=== PATIENT | male | born 1965 | race Caucasian/White ===

== ENCOUNTER → 2024-03-13 16:37 | Outpatient (REF) | payer OTHER, SELFPAY | LOC: PAVMRI 16:37 | PROVIDERS: ATTENDING PHYSICIAN Orthopaedic Surgery; FAMILY PHYSICIAN Nurse Practitioner Family | DX: M25.511 Pain in right shoulder (principal); M54.12 Radiculopathy, cervical region | CPT/HCPCS: 72141; 73221 ==

== ENCOUNTER 2024-04-27 07:57 | Outpatient (RCR) | payer OTHER, SELFPAY | END 2024-04-27 23:59 | disposition home or self-care (01) | LOC: RPT 07:57 | PROVIDERS: ATTENDING PHYSICIAN Physician Assistant Surgical; FAMILY PHYSICIAN Family Medicine | DX: M54.12 Radiculopathy, cervical region (principal); M50.30 Other cervical disc degeneration, unspecified cervical region; M19.011 Primary osteoarthritis, right shoulder; M19.012 Primary osteoarthritis, left shoulder; Z73.6 Limitation of activities due to disability | CPT/HCPCS: 97110; 97112; 97140; 97162 ==

== ENCOUNTER 2024-05-29 13:02 | Outpatient (RCR) | payer OTHER, SELFPAY | END 2024-05-29 23:59 | disposition home or self-care (01) | LOC: RPT 13:02 | PROVIDERS: ATTENDING PHYSICIAN Physician Assistant Surgical; FAMILY PHYSICIAN Family Medicine | DX: M54.12 Radiculopathy, cervical region (principal); M50.30 Other cervical disc degeneration, unspecified cervical region; M19.019 Primary osteoarthritis, unspecified shoulder; M75.50 Bursitis of unspecified shoulder; Z73.6 Limitation of activities due to disability | CPT/HCPCS: 97110; 97112; 97140 ==

== ENCOUNTER 2024-06-06 10:39 | Emergency (ER) | payer OTHER, SELFPAY ==
[2024-06-06 10:50] VITALS: BP 136/78
[2024-06-06 11:22] VITALS: BMI 24.8
--- NOTE | 2024-06-06 11:46 | ED.GENMED ---
History of Present Illness
General
Chief Complaint: Skin Problem
Time Seen by Provider: 06/06/24 11:21
History of Present Illness
History of Present Illness:
58-year-old male presents to the emergency department for evaluation of redness and discomfort associated with an abrasion to the right lower leg. States he injured it last week on the bottom of an extension ladder. Initially cleaned the wound and
stopped bleeding with liquid skin. Over the past 2 days has had increased redness and swelling. No fevers or chills. Concerned that he has a right hip replacement.
Review of Systems
Review of Systems
Allergies reviewed?: Yes
All Other Systems: ROS reviewed and negative except as documented in HPI and ROS
Phy Exam
Physical Exam
Physical Exam:
GEN: Well appearing, NAD, WDWN
HEENT: Oral mucosa moist, no scleral icterus
Cardiac: Regular rate
Lung: No respiratory distress, no tachypnea
MSK: No gross deformity or injuries
Skin: Good color, no pallor or jaundice. 2 cm healing partial-thickness laceration to the right lower leg with approximately 1 to 2 cm circumferential erythema and tenderness, no swelling or purulent discharge
Neuro: AO x3, moves all extremities freely
Psych: Calm, cooperative
Course
Vital Signs
Initial and Last Documented VS:
Initial Vital Signs
Temp Pulse Resp BP Pulse Ox
98.8 F 60 18 136/78 98
06/06/24 10:50 06/06/24 10:50 06/06/24 10:50 06/06/24 10:50 06/06/24 10:50
Last Documented Vital Signs
Temp Pulse Resp BP Pulse Ox
98.8 F 60 18 136/78 98
06/06/24 10:50 06/06/24 10:50 06/06/24 10:50 06/06/24 10:50 06/06/24 10:50
MDM/Problems Addressed
MDM/Problems Addressed:
Mild cellulitis developing as a result of the wound. No palpable evidence for abscess, no lymphangitis. Patient is clinically well, no clinical signs of sepsis. Will treat with high-dose cephalexin due to indwelling orthopedic hardware
*Critical Care Note
Total Time (30-74mins, 75-104mins- exclusive of procedures): Not Applicable
ED Attending Note
-
Portions of this chart may have been created with voice recognition software.� Occasional wrong word or��sound alike� substitutions may have occurred due to the inherent limitations of voice recognition software.
Discharge Plan
Departure
Patient Disposition: Home (Routine Discharge)
Date of Disposition: 06/06/24
Time of Disposition: 11:48
Patient with high blood pressure during this ER visit?: No
Discharge Problem:
Cellulitis of right lower extremity
Instructions: Cellulitis (Skin Infection), Adult (DC)
Prescriptions:
New
cephalexin 500 mg capsule
500 mg PO QID 7 Days Qty: 28 0RF
No Action
metoprolol tartrate 25 MG tablet
25 mg PO Daily
multivitamin Tablet
1 tab PO DAILY
hawthorn 500 mg Capsule
500 mg PO DAILY
oregano oil 1,500 mg Capsule
500 mg PO DAILY
cholecalciferol (vitamin D3) [Vitamin D3] 25 mcg (1,000 unit) Tablet,Chewable
25 mcg PO DAILY
ashwagandha root extract 500 mg Capsule
1,000 mg PO DAILY
ondansetron HCl 4 mg tablet
4 mg PO Q6H PRN (Reason: nausea and vomiting) Qty: 20 0RF
Rx Instructions:
Take 1/2 hour prior to [place] for recurrent nausea.
celecoxib [Celebrex] 200 mg capsule
200 mg PO DAILY Qty: 30 0RF
Rx Instructions:
Take with food.
Do not take within 2 hours of Aspirin post-surgery.
famotidine [Pepcid] 20 mg tablet
20 mg PO HS Qty: 30 0RF
Rx Instructions:
Take nightly while on Celebrex.
mupirocin 2 % ointment
1 applic intranasal BID Qty: 1 0RF
hydrocodone-acetaminophen 5-325 mg tablet
1 tab PO Q6H PRN (Reason: moderate-severe pain) Qty: 30 0RF
Rx Instructions:
1 tab for moderate pain, 2 if severe.
Dx total joint. Ongoing therapy.
aspirin 325 mg capsule
325 mg PO DAILY Qty: 28 0RF
Rx Instructions:
Take daily x4 weeks for blood clot prevention.
acetaminophen 325 mg capsule
650 mg PO Q4H PRN (Reason: mild pain) Qty: 30 0RF
Rx Instructions:
DO NOT exceed >4000 mg daily.
1 [place] tab = 325 mg of Tylenol.
docusate sodium [Colace] 100 mg capsule
100 mg PO BID Qty: 30 0RF
senna 8.6 mg capsule
17.2 mg PO BID Qty: 30 0RF
Interventions
Interventions:
*Risk Screen - Suicide Last Done: 06/06/24 10:50
*General Assessment Last Done: 06/06/24 10:50
*Neglect/Abuse Screening Last Done: 06/06/24 10:50
*Nursing Disposition Last Done: 06/06/24 12:00
ED-Skin Assessment Last Done: 06/06/24 11:22
Discharge Date and Time
Discharge Date/Time: 06/06/24 12:17
Print Language: MALIAN
== END 2024-06-06 12:17 | disposition home or self-care (01) ==
LOC: EMR 10:39
PROVIDERS: EMERGENCY PHYSICIAN Student in an Organized Health Care Education/Training Program
DX: L03.115 Cellulitis of right lower limb (principal); S80.811A Abrasion, right lower leg, initial encounter; X58.XXXA Exposure to other specified factors, initial encounter; Z96.641 Presence of right artificial hip joint
CPT/HCPCS: 99283

== ENCOUNTER → 2024-07-17 11:58 | Outpatient (REF) | payer OTHER, SELFPAY | LOC: RCS 11:58 | PROVIDERS: ATTENDING PHYSICIAN Orthopaedic Surgery Hand Surgery; FAMILY PHYSICIAN Family Medicine | DX: Z01.818 Encounter for other preprocedural examination (principal) | CPT/HCPCS: 93005 ==

== ENCOUNTER 2024-09-28 10:00 | Outpatient (RCR) | payer OTHER, SELFPAY | END 2024-09-28 23:59 | disposition home or self-care (01) | LOC: RPT 10:00 | PROVIDERS: ATTENDING PHYSICIAN Orthopaedic Surgery Hand Surgery; FAMILY PHYSICIAN Family Medicine | DX: Z73.6 Limitation of activities due to disability; Z47.89 Encounter for other orthopedic aftercare; M25.511 Pain in right shoulder; M62.81 Muscle weakness (generalized) | CPT/HCPCS: 97010; 97110; 97140; 97161 ==

== ENCOUNTER 2024-10-30 06:20 | Outpatient (RCR) | payer OTHER, SELFPAY | END 2024-10-30 23:59 | disposition home or self-care (01) | LOC: RPT 06:20 | PROVIDERS: ATTENDING PHYSICIAN Orthopaedic Surgery Hand Surgery; FAMILY PHYSICIAN Family Medicine | DX: M25.511 Pain in right shoulder (principal); M62.81 Muscle weakness (generalized); Z47.89 Encounter for other orthopedic aftercare; Z73.6 Limitation of activities due to disability | CPT/HCPCS: 97010; 97110; 97140 ==

== ENCOUNTER → 2024-11-16 12:41 | Outpatient (REF) | payer OTHER, SELFPAY | LOC: WOUND 12:41 | PROVIDERS: ATTENDING PHYSICIAN Surgery; FAMILY PHYSICIAN Family Medicine | DX: L91.0 Hypertrophic scar (principal) | CPT/HCPCS: 99213 ==

== ENCOUNTER 2024-11-20 12:03 | Outpatient (RCR) | payer OTHER, SELFPAY | END 2024-11-20 23:59 | disposition home or self-care (01) | LOC: RPT 12:03 | PROVIDERS: ATTENDING PHYSICIAN Orthopaedic Surgery Hand Surgery; FAMILY PHYSICIAN Family Medicine | DX: M25.511 Pain in right shoulder (principal); M62.81 Muscle weakness (generalized); Z47.89 Encounter for other orthopedic aftercare; Z73.6 Limitation of activities due to disability | CPT/HCPCS: 97010; 97110; 97140 ==

== ENCOUNTER → 2024-12-07 10:39 | Outpatient (REF) | payer OTHER, SELFPAY ==
[2024-12-07 11:55] LABS: Troponin I < 0.012 ng/ml
== END ==
LOC: REG 10:39
PROVIDERS: ATTENDING PHYSICIAN Physician Assistant
DX: R07.89 Other chest pain (principal)
CPT/HCPCS: 36415; 84484

== ENCOUNTER 2024-12-21 08:54 | Outpatient (RCR) | payer OTHER, SELFPAY | END 2024-12-27 23:59 | disposition home or self-care (01) | LOC: RPT 08:54 | PROVIDERS: ATTENDING PHYSICIAN Specialist; FAMILY PHYSICIAN Family Medicine | DX: R35.0 Frequency of micturition (principal); Z73.6 Limitation of activities due to disability | CPT/HCPCS: 97161; 97530 ==

== ENCOUNTER 2024-12-27 07:00 | Outpatient (RCR) | payer OTHER, SELFPAY | END 2024-12-27 23:59 | disposition home or self-care (01) | LOC: RPT 07:00 | PROVIDERS: ATTENDING PHYSICIAN Orthopaedic Surgery Hand Surgery; FAMILY PHYSICIAN Family Medicine | DX: M25.511 Pain in right shoulder (principal); M62.81 Muscle weakness (generalized); Z47.89 Encounter for other orthopedic aftercare; Z73.6 Limitation of activities due to disability | CPT/HCPCS: 97110; 97140 ==

== ENCOUNTER 2025-01-14 10:24 | Outpatient (RCR) | payer OTHER, SELFPAY | END 2025-01-14 23:59 | disposition home or self-care (01) | LOC: RPT 10:24 | PROVIDERS: ATTENDING PHYSICIAN Specialist; FAMILY PHYSICIAN Family Medicine | DX: R35.0 Frequency of micturition (principal); R39.15 Urgency of urination; Z73.6 Limitation of activities due to disability | CPT/HCPCS: 97110; 97140 ==

== ENCOUNTER 2025-01-21 10:04 | Outpatient (RCR) | payer OTHER, SELFPAY | END 2025-01-21 23:59 | disposition home or self-care (01) | LOC: RPT 10:04 | PROVIDERS: ATTENDING PHYSICIAN Orthopaedic Surgery Hand Surgery; FAMILY PHYSICIAN Family Medicine | DX: M25.511 Pain in right shoulder (principal); Z47.89 Encounter for other orthopedic aftercare; M62.81 Muscle weakness (generalized); Z73.6 Limitation of activities due to disability | CPT/HCPCS: 97110; 97140 ==

== ENCOUNTER 2025-02-06 08:31 | Outpatient (RCR) | payer OTHER, SELFPAY | END 2025-02-06 23:59 | disposition home or self-care (01) | LOC: RPT 08:31 | PROVIDERS: ATTENDING PHYSICIAN Orthopaedic Surgery Hand Surgery; FAMILY PHYSICIAN Family Medicine | DX: Z47.89 Encounter for other orthopedic aftercare (principal); M25.511 Pain in right shoulder; M62.81 Muscle weakness (generalized); Z73.6 Limitation of activities due to disability | CPT/HCPCS: 97110; 97140 ==

== ENCOUNTER 2025-02-21 11:50 | Outpatient (RCR) | payer OTHER, SELFPAY | END 2025-02-21 23:59 | disposition home or self-care (01) | LOC: RPT 11:50 | PROVIDERS: ATTENDING PHYSICIAN Specialist; FAMILY PHYSICIAN Family Medicine | DX: R35.0 Frequency of micturition (principal); R39.15 Urgency of urination; Z73.6 Limitation of activities due to disability | CPT/HCPCS: 97110; 97112; 97140; 97530 ==

== ENCOUNTER 2025-02-25 10:57 | Outpatient (RCR) | payer OTHER, SELFPAY | END 2025-02-25 23:59 | disposition home or self-care (01) | LOC: RPT 10:57 | PROVIDERS: ATTENDING PHYSICIAN Orthopaedic Surgery Sports Medicine; FAMILY PHYSICIAN Family Medicine | DX: S83.511D Sprain of anterior cruciate ligament of right knee, subsequent encounter (principal); Z73.6 Limitation of activities due to disability; M62.89 Other specified disorders of muscle | CPT/HCPCS: 97110; 97161 ==

== ENCOUNTER 2025-03-18 13:07 | Outpatient (RCR) | payer OTHER, SELFPAY | END 2025-03-18 23:59 | disposition home or self-care (01) | LOC: RPT 13:07 | PROVIDERS: ATTENDING PHYSICIAN Orthopaedic Surgery Sports Medicine; FAMILY PHYSICIAN Family Medicine | DX: S83.511D Sprain of anterior cruciate ligament of right knee, subsequent encounter (principal); Z73.6 Limitation of activities due to disability; M62.89 Other specified disorders of muscle; M62.81 Muscle weakness (generalized) | CPT/HCPCS: 97110; 97112 ==

== ENCOUNTER 2025-04-08 10:00 | Outpatient (RCR) | payer OTHER, SELFPAY | END 2025-04-08 23:59 | disposition home or self-care (01) | LOC: RPT 10:00 | PROVIDERS: ATTENDING PHYSICIAN Orthopaedic Surgery Sports Medicine; FAMILY PHYSICIAN Family Medicine | DX: S83.511D Sprain of anterior cruciate ligament of right knee, subsequent encounter (principal); Z73.6 Limitation of activities due to disability; M62.89 Other specified disorders of muscle; M62.81 Muscle weakness (generalized) | CPT/HCPCS: 97110; 97112 ==